=== PATIENT | male | born 1985 | race Two or more races ===

== ENCOUNTER 2018-06-24 10:56 | Emergency (ER) | payer MEDICAID ==
[~2018-06-24] VITALS: Ht 172.7 cm; Wt 78.0 kg
[2018-06-24] MEDS ORDERED: IBUPROFEN 600MG TABLET PO ONE (11:30)
[2018-06-24 12:44] VITALS: BP 119/64
== END 2018-06-24 12:46 | disposition home or self-care (01) ==
LOC: ER 10:56
DX: S43.102A Unspecified dislocation of left acromioclavicular joint, initial encounter (principal); W01.0XXA Fall on same level from slipping, tripping and stumbling without subsequent striking against object, initial encounter; Y93.89 Activity, other specified; Y92.89 Other specified places as the place of occurrence of the external cause; Y99.8 Other external cause status
CPT/HCPCS: 73030; 99283